=== PATIENT | male | born 1950 | race African-American/Black ===

== ENCOUNTER 2018-10-16 13:23 | Outpatient (CLI) | payer MEDICARE ==
--- NOTE | 2018-10-16 15:57 | MRI ---
MRI Pelvis W WO Con History: [R 97.20 elevated PSA] Comparison: None. Findings: Multiplanar multisequence MRI of the pelvis was performed using prostate protocol. The exam was reviewed on an independent 3-D workstation. Prostate: Prostate measures 4.7 x 3.7 x 4.2 cm for a volume of 36.27 mL Peripheral zone: No focal area of diffusion restriction within the peripheral zone. Transitional zone: Multifocal round stromal and glandular nodules. No lentiform area of T2 signal abn ormality. Lymph nodes: There a single right perivesicular lymph node measuring 5 mm in short axis. No other lym ph nodes are appreciated. Seminal vesicles: Normal. Neurovascular bundles: Normal. Prostatic capsule: Intact. Urinary bladder: Mildly trabeculated. Bones: On the large [id number] T1 weighted sequence there are no focal areas of marrow signal loss to suggest osseous metastatic disease. Impression: PI-RADS Category 2: Low. Clinically significant prostate cancer is unlikely to be present .
== END 2018-10-16 13:24 | disposition home or self-care (01) ==
LOC: TBSIIMAG 13:23
PROVIDERS: ATTEND Urology
DX: R97.20 Elevated prostate specific antigen [PSA] (principal)
CPT/HCPCS: 72197; 82565